=== PATIENT | male | born 1960 | race Two or more races ===

== ENCOUNTER 2025-03-04 12:51 | Emergency (ER) | payer BC, OTHER ==
[2025-03-04 13:02] VITALS: BP 150/91; PULSE 90; RESP 18; TEMP 98.3; BMI 19.4
[2025-03-04] MEDS ORDERED: LIDOCAINE HCL 1%, 10 MG/ML (20ML VIAL) ONE (13:39)
[2025-03-04] MEDS: LIDOCAINE HCL 2% (50ML VIAL) SQ ONE (13:45)
[2025-03-04] MEDS ORDERED: AMOX TR/POT CLAV 875MG/125MG TABLETS (FP) ONE (14:01)
[2025-03-04] MEDS ORDERED: IBUPROFEN 600 MG TABLET (FP) PO ONE (14:01)
[2025-03-04] MEDS ORDERED: DIPHTH,PERTUSS(ACELL),TET 0.5 ML DISP.SYRIN IM ONE (14:01)
[2025-03-04] MEDS: DIPHTH,PERTUSS(ACELL),TET 0.5 ML DISP.SYRIN IM ONE (14:07)
[2025-03-04] MEDS: AMOX TR/POT CLAV 875MG/125MG TABLETS (FP) PO ONE (14:08)
[2025-03-04] MEDS: IBUPROFEN 600 MG TABLET (FP) PO ONE (14:08)
== END 2025-03-04 14:33 | disposition home or self-care (01) ==
LOC: JERFT 12:51
PROC: 0HQGXZZ Repair Left Hand Skin, External Approach (ICD-10-PCS; principal; 2025-03-04)
PROC: 3E0234Z Introduction of Serum, Toxoid and Vaccine into Muscle, Percutaneous Approach (ICD-10-PCS; 2025-03-04)
DX: S61.213A Laceration without foreign body of left middle finger without damage to nail, initial encounter (principal); S61.215A Laceration without foreign body of left ring finger without damage to nail, initial encounter; Z23 Encounter for immunization; W54.0XXA Bitten by dog, initial encounter
CPT/HCPCS: 73130-TC-LT-FY; 90715; 99284-25